=== PATIENT | male | born 1960 | race Caucasian/White ===

== ENCOUNTER 2018-07-23 17:55 | Emergency (ER) | payer OTHER ==
[2018-07-23] MEDS ORDERED: Ondansetron 4 MG Tab.DIS PO ONE (17:56)
[2018-07-23] MEDS ORDERED: Ciprofloxacin 500 MG Tab PO ONE (17:56)
[2018-07-23] MEDS ORDERED: Tamsulosin 0.4 MG Cap.ER PO ONE ×2 (17:56→19:51)
[2018-07-23] MEDS ORDERED: Acetaminophen/oxyCODONE 325-5 MG Tab PO ONE (17:56)
[2018-07-23] MEDS ORDERED: Sodium Chloride 0.9% 10 ML Syringe FLUSH PRN (18:21)
[2018-07-23] MEDS ORDERED: Ondansetron 4 MG/2 ML SDV IV ONE (18:21)
[2018-07-23] MEDS ORDERED: Lactated Ringers 1,000 ML IV ONE ×2 (18:21→20:02)
[2018-07-23] MEDS ORDERED: fentaNYL 100 MCG/2 ML SDV IVPUSH ONE ×2 (18:22→19:34)
[2018-07-23] MEDS ORDERED: Iopamidol 612 MG/ML 100 ML Bottle IVPUSH ONE (18:55)
[2018-07-23 18:56] LABS: CHLORIDE,CL 99 mmol/L (101-111); SODIUM,NA 135 mmol/L (135-145)
[2018-07-23] MEDS ORDERED: Iopamidol 612 MG/ML 50 ML SDV IVPUSH ONE (19:01)
[2018-07-23] MEDS ORDERED: Iopamidol 612 MG/ML 75 ML Bottle IVPUSH ONE (19:02)
--- NOTE | 2018-07-23 19:03 | EDM.PDOC ---
<Nunu Sellers - Last Filed: 07/24/18 03:38> ED HPI GENERAL MEDICAL PROBLEM - General Chief Complaint: Abdominal Pain Stated Complaint: PAINS GOING DOWN LEFT SIDE OF [id number] Time Seen by Provider: 07/23/18 18:20 - History of Present Illness INITIAL COMMENTS - FREE TEXT/NARRATIVE: mid left abdominal pain today, mild 2 hours earlier improved then worsened, constant, nausea, no vomiting. kimted intake today. reports pain started left flank yesterday. Has had increased frequency of urination , no burining. no fever or chills. - Related Data Allergies Allergy/AdvReac Type Severity Reaction Status Date / Time midazolam [From Versed] AdvReac Agitation Verified 07/23/18 18:10 Home Meds: Home Meds Aspirin [Lo-Dose Aspirin EC] 81 mg PO DAILY 07/23/18 [History] Gabapentin [Neurontin] 300 mg PO BID 07/23/18 [History] Levothyroxine 75 mcg PO DAILY 07/23/18 [History] Liraglutide [Victoza] 1.6 units SQ BID 07/23/18 [History] Losartan [Cozaar] 25 mg PO DAILY 07/23/18 [History] atorvaSTATin [Lipitor] 10 mg PO BEDTIME 07/23/18 [History] glipiZIDE [Glucotrol XL] 5 mg PO BID 07/23/18 [History] metFORMIN HCl [Metformin HCl] 1,000 mg PO BID 07/23/18 [History] rOPINIRole [Requip] 0.5 mg PO BID 07/23/18 [History] ED ROS GENERAL - Review of Systems Review Of Systems: ROS reveals no pertinent complaints other than HPI. ED EXAM, GI/ABD - Physical Exam Exam: See Below Exam Limited By: No Limitations General Appearance: Alert, Moderate Distress, Obese Eyes: Bilateral: Normal Appearance Ears: Normal External Exam Nose: Normal Inspection Throat/Mouth: Normal Inspection Head: Atraumatic, Other Neck: Normal Inspection Respiratory/Chest: No Respiratory Distress, Lungs Clear, Normal Breath Sounds Cardiovascular: Regular Rate, Rhythm GI/Abdominal Exam: No Distention, Tender (mid to lateral left abdomen). No: Guarding, Rigid Back Exam: Normal Inspection Extremities: Pedal Edema (1+) Neurological: Alert, Oriented, Normal Cognition Psychiatric: Normal Affect Skin Exam: Warm, Dry, Intact, Normal Color, No Rash Course - Vital Signs Last Recorded V/S: Last Vital Signs Temp 37.4 C 07/23/18 19:41 Pulse 79 07/23/18 19:41 Resp 18 07/23/18 19:41 BP 153/75 H 07/23/18 19:41 Pulse Ox 92 L 07/23/18 19:41 - Orders/Labs/Meds Orders: Active Orders 24 hr Category Date Time Status EKG 12 Lead [EKG Documentation Completion] [RC] URGENT Care 07/23/18 18:21 Active EKG Documentation Completion [RC] URGENT Care 07/23/18 18:21 Active Peripheral IV Care [RC] . DIRECTED Care 07/23/18 18:21 Active Peripheral IV Insertion Adult [OM.PC] Stat Oth 07/23/18 18:21 Ordered Labs: Laboratory Tests 07/23/18 07/23/18 07/23/18 Range/Units 18:30 18:30 18:30 WBC 8.8 (5.0-10.0) 10^3/uL RBC 5.21 (4.6-6.2) 10^6/uL Hgb 14.7 (14.0-18.0) g/dL Hct 44.7 (40.0-54.0) % MCV 85.8 (80-100) fL MCH 28.2 (27.0-34.0) pg MCHC 32.9 L (33.0-35.0) g/dL Plt Count 202 (150-450) 10^3/uL Neut % (Auto) 69.6 (42.2-75.2) % Lymph % (Auto) 19.6 L (20.5-50.1) % [place] % (Auto) 8.4 H (2-8) % Eos % (Auto) 1.9 (1.0-3.0) % Baso % (Auto) 0.5 (0.0-1.0) % Sodium 135 (135-145) mmol/L Potassium 4.0 (3.6-5.0) mmol/L Chloride 99 L (101-111) mmol/L Carbon Dioxide 25.0 (21.0-31.0) mmol/L Anion Gap 15.0 BUN 21 H (7-18) mg/dL Creatinine 0.9 (0.6-1.3) mg/dL Est Cr Clr Drug Dosing TNP Estimated GFR (MDRD) > 60 BUN/Creatinine Ratio 23.33 Glucose 203 H (74-105) mg/dL Lactic Acid 1.7 (0.5-2.2) mmol/L Calcium 8.9 (8.4-10.2) mg/dl Total Bilirubin 0.9 (0.2-1.0) mg/dL AST 38 (10-42) IU/L ALT 46 (10-60) IU/L Alkaline Phosphatase 59 (42-121) IU/L C-Reactive Protein (0.0-1.3) mg/dL Total Protein 6.9 (6.7-8.2) g/dl Albumin 3.5 (3.2-5.5) g/dl Globulin 3.4 Albumin/Globulin Ratio 1.03 Amylase (28-100) U/L Lipase (22-51) U/L Urine Color (YELLOW) Urine Appearance (CLEAR) Urine pH (5.0-9.0) Ur Specific [place] (1.005-1.030) Urine Protein (NEGATIVE) Urine Glucose (UA) (NEGATIVE) Urine Ketones (NEGATIVE) Urine Occult Blood (NEGATIVE) Urine Nitrite (NEGATIVE) Urine Bilirubin (NEGATIVE) Urine Urobilinogen (0.2-1.0) mg/dL Ur Leukocyte Esterase (NEGATIVE) Urine RBC /HPF Urine WBC (0-5/HPF) /HPF Ur Epithelial Cells /HPF Urine Bacteria (0-FEW/HPF) /HPF Urine Mucus /LPF 07/23/18 07/23/18 07/23/18 Range/Units 18:30 18:30 20:14 WBC (5.0-10.0) 10^3/uL RBC (4.6-6.2) 10^6/uL Hgb (14.0-18.0) g/dL Hct (40.0-54.0) % MCV (80-100) fL MCH (27.0-34.0) pg MCHC (33.0-35.0) g/dL Plt Count (150-450) 10^3/uL Neut % (Auto) (42.2-75.2) % Lymph % (Auto) (20.5-50.1) % [place] % (Auto) (2-8) % Eos % (Auto) (1.0-3.0) % Baso % (Auto) (0.0-1.0) % Sodium (135-145) mmol/L Potassium (3.6-5.0) mmol/L Chloride (101-111) mmol/L Carbon Dioxide (21.0-31.0) mmol/L Anion Gap BUN (7-18) mg/dL Creatinine (0.6-1.3) mg/dL Est Cr Clr Drug Dosing Estimated GFR (MDRD) BUN/Creatinine Ratio Glucose (74-105) mg/dL Lactic Acid (0.5-2.2) mmol/L Calcium (8.4-10.2) mg/dl Total Bilirubin (0.2-1.0) mg/dL AST (10-42) IU/L ALT (10-60) IU/L Alkaline Phosphatase (42-121) IU/L C-Reactive Protein 0.9 (0.0-1.3) mg/dL Total Protein (6.7-8.2) g/dl Albumin (3.2-5.5) g/dl Globulin Albumin/Globulin Ratio Amylase 59 (28-100) U/L Lipase 32 (22-51) U/L Urine Color Yellow (YELLOW) Urine Appearance Slightly cloudy (CLEAR) Urine pH 7.0 (5.0-9.0) Ur Specific [place] 1.015 (1.005-1.030) Urine Protein 30 H (NEGATIVE) Urine Glucose (UA) Negative (NEGATIVE) Urine Ketones Negative (NEGATIVE) Urine Occult Blood Small H (NEGATIVE) Urine Nitrite Negative (NEGATIVE) Urine Bilirubin Negative (NEGATIVE) Urine Urobilinogen 0.2 (0.2-1.0) mg/dL Ur Leukocyte Esterase Negative (NEGATIVE) Urine RBC 5-10 H /HPF Urine WBC 0-5 (0-5/HPF) /HPF Ur Epithelial Cells Rare /HPF Urine Bacteria Rare (0-FEW/HPF) /HPF Urine Mucus Rare /LPF Meds: Medications Discontinued Medications Generic Name Dose Route Start Last Admin Trade Name Freq PRN Reason Stop Dose Admin Ciprofloxacin Confirm 07/23/18 20:50 07/23/18 21:03 Ciprofloxacin Hcl Administered 07/23/18 20:51 Not Given Dose 1,500 mg .ROUTE .STK-MED ONE Fentanyl 50 mcg 07/23/18 18:22 03/13/19 19:14 Sublimaze IVPUSH 07/23/18 18:23 50 mcg ONETIME ONE Administration Fentanyl 50 mcg 07/23/18 19:34 07/23/18 19:39 Sublimaze IVPUSH 07/23/18 19:35 50 mcg ONETIME ONE Administration Lactated Ringer's 1,000 mls @ 1,000 mls/hr 07/23/18 18:21 07/23/18 19:16 Ringers, Lactated IV 07/23/18 19:20 1,000 mls/hr .BOLUS ONE Administration Lactated Ringer's 1,000 mls @ 999 mls/hr 07/23/18 20:02 07/23/18 20:14 Ringers, Lactated IV 07/23/18 21:02 999 mls/hr ONETIME ONE Administration Iopamidol 125 ml 07/23/18 18:55 Isovue-300 (61%) IVPUSH 07/23/18 18:56 ONETIME ONE Iopamidol 50 ml 07/23/18 19:01 07/23/18 19:10 Isovue-300 (61%) IVPUSH 07/23/18 19:02 50 ml ONETIME ONE Administration Iopamidol 75 ml 07/23/18 19:02 07/23/18 19:10 Isovue-300 (61%) IVPUSH 07/23/18 19:03 75 ml ONETIME ONE Administration Ondansetron HCl 4 mg 07/23/18 18:21 07/23/18 19:12 Zofran IV 07/23/18 18:22 4 mg ONETIME ONE Administration Ondansetron HCl Confirm 07/23/18 20:01 07/23/18 21:01 Zofran Odt Administered 07/23/18 20:02 Not Given Dose 12 mg .ROUTE .STK-MED ONE Ondansetron HCl Confirm 07/23/18 20:50 07/23/18 21:00 Zofran Odt Administered 07/23/18 20:51 Not Given Dose 16 mg .ROUTE .STK-MED ONE Oxycodone/Acetaminophen Confirm 07/23/18 20:01 07/23/18 21:01 Percocet 325-5 Mg Administered 07/23/18 20:02 Not Given Dose 2 tab .ROUTE .STK-MED ONE Oxycodone/Acetaminophen Confirm 07/23/18 20:50 07/23/18 21:01 Percocet 325-5 Mg Administered 07/23/18 20:51 Not Given Dose 4 tab .ROUTE .STK-MED ONE Sodium Chloride 10 ml 07/23/18 18:21 07/23/18 19:14 Saline Flush FLUSH 10 ml ASDIRECTED PRN Administration Keep Vein Open Tamsulosin HCl 0.4 mg 07/23/18 19:51 07/23/18 20:02 Flomax PO 07/23/18 19:52 0.4 mg ONETIME ONE Administration Tamsulosin HCl Confirm 07/23/18 20:51 07/23/18 21:02 Flomax Administered 07/23/18 20:52 Not Given Dose 0.4 mg .ROUTE .STK-MED ONE Departure - Departure Time of Disposition: 20:40 Disposition: Home, Self-Care 01 Condition: Good Clinical Impression: Renal calculi - Discharge Information *PRESCRIPTION DRUG MONITORING PROGRAM REVIEWED*: No *COPY OF PRESCRIPTION DRUG MONITORING REPORT IN PATIENT GRACIE: No Instructions: Kidney Stones, [id number], Dietary Guidelines to Help Prevent Kidney Stones Referrals: Sade Masterson NP [Primary Care Provider] - Forms: ED Department Discharge Additional Instructions: increase fluids zofran 4mg ODT one every 6 hours as needed for nausea Percocet 5/325 one every 6 hours as needed for severe pain Cipro 500mg one twice daily for 5 days Flomax 0.4 mg one daily for 5 days Clinic follow up on Saturday - My Orders Last 24 Hours: My Active Orders 07/23/18 18:21 EKG 12 Lead [EKG Documentation Completion] [RC] URGENT EKG Documentation Completion [RC] URGENT Peripheral IV Care [RC] . DIRECTED Peripheral IV Insertion Adult [OM.PC] Stat - Assessment/Plan Last 24 Hours: My Active Orders 07/23/18 18:21 EKG 12 Lead [EKG Documentation Completion] [RC] URGENT EKG Documentation Completion [RC] URGENT Peripheral IV Care [RC] . DIRECTED Peripheral IV Insertion Adult [OM.PC] Stat <Eligio Lopez - Last Filed: 07/24/18 09:39> ED HPI GENERAL MEDICAL PROBLEM - General Source of Information: Reports: Patient History Limitations: Reports: No Limitations Left Lower Abdominal Pain Score (Numeric/FACES): 8 Course - Re-Assessments/Exams Free Text/Narrative Re-Assessment/Exam: 07/23/18 19:03 Care to Nunu Franklin PA-C at this time. Pt in CT scanner at this time.
[2018-07-23] MEDS ORDERED: Acetaminophen/oxyCODONE 325-5 MG Tab ONE ×2 (20:01→20:50)
[2018-07-23] MEDS ORDERED: Ondansetron 4 MG Tab.DIS ONE ×2 (20:01→20:50)
[2018-07-23] MEDS ORDERED: Ciprofloxacin 500 MG Tab ONE (20:50)
[2018-07-23] MEDS ORDERED: Tamsulosin 0.4 MG Cap.ER ONE (20:51)
== END 2018-07-23 21:08 | disposition home or self-care (01) ==
LOC: DL.ED 17:55
DX: N20.2 Calculus of kidney with calculus of ureter (principal); Z88.8 Allergy status to other drugs, medicaments and biological substances; Z79.82 Long term (current) use of aspirin; Z79.899 Other long term (current) drug therapy
CPT/HCPCS: 36415; 74177; 80053; 81001; 82150; 83605; 83690; 85025; 86140; 93005; 96361; 96374; 96375; 99284; A9270; J2405; J3010; J7120; Q9967

== ENCOUNTER 2019-04-13 03:41 | Emergency (ER) | payer OTHER ==
[2019-04-13] MEDS ORDERED: Albuterol/Ipratropium 3.0-0.5 MG/3 ML Neb Soln ONE (03:57)
--- NOTE | 2019-04-13 04:00 | EDM.PDOC ---
ED HPI GENERAL MEDICAL PROBLEM - General Chief Complaint: Respiratory Problem Stated Complaint: SICK FOR OVER A WEEK, GETTING WORSE Time Seen by Provider: 04/13/19 03:45 Source of Information: Reports: Patient, Family, RN History Limitations: Reports: No Limitations - History of Present Illness INITIAL COMMENTS - FREE TEXT/NARRATIVE: ED with c/o fever productive cough body aches and headache for past week. On azithromycin x 4 days and not helping. notes intolerant of prednisone tried one time of one pill and blood sugars up to 400. Started insulin 2 months ago. 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: Breathing Treatments Generalized Pain Score (Numeric/FACES): 5 - Related Data Allergies Allergy/AdvReac Type Severity Reaction Status Date / Time midazolam [From Versed] AdvReac Agitation Verified 04/13/19 03:57 Home Meds: Home Meds Aspirin [Lo-Dose Aspirin EC] 81 mg PO DAILY 07/23/18 [History] Gabapentin [Neurontin] 300 mg PO BID 07/23/18 [History] Levothyroxine 75 mcg PO DAILY 07/23/18 [History] Liraglutide [Victoza] 1.6 units SQ BID 07/23/18 [History] Losartan [Cozaar] 25 mg PO DAILY 07/23/18 [History] atorvaSTATin [Lipitor] 10 mg PO BEDTIME 07/23/18 [History] glipiZIDE [Glucotrol XL] 5 mg PO BID 07/23/18 [History] metFORMIN HCl [Metformin HCl] 1,000 mg PO BID 07/23/18 [History] rOPINIRole [Requip] 0.5 mg PO BID 07/23/18 [History] Past Medical History Cardiovascular History: Reports: High Cholesterol, Hypertension Other Musculoskeletal History: Restless legs Neurological History: Reports: Neuropathy, Diabetic Endocrine/Metabolic History: Reports: Diabetes, Type II, Hypothyroidism - Past Surgical History GI Surgical History: Reports: Bariatric Procedure Other GI Surgeries/Procedures: Lap Band Social & Family History - Tobacco Use Smoking Status *Q: Never Smoker - Caffeine Use Caffeine Use: Reports: Coffee - Recreational Drug Use Recreational Drug Use: No ED ROS GENERAL - Review of Systems Review Of Systems: Comprehensive ROS is negative, except as noted in HPI. ED EXAM, GENERAL - Physical Exam Exam: See Below Exam Limited By: No Limitations General Appearance: Alert, Mild Distress Eye Exam: Bilateral Eye: EOMI Ears: Normal External Exam, Normal TMs Nose: Normal Inspection Throat/Mouth: Normal Inspection Head: Atraumatic, Normocephalic Neck: Normal Inspection Respiratory/Chest: No Respiratory Distress, Wheezing, Other (frequent dry harsh cough) Cardiovascular: Normal Peripheral Pulses, Regular Rate, Rhythm GI/Abdominal: Soft Neurological: Alert, Oriented, Normal Cognition Psychiatric: Flat Affect Skin Exam: Warm, Dry, Intact, Normal Color Course - Vital Signs Last Recorded V/S: Last Vital Signs Temp 97 F 04/13/19 03:44 Pulse 78 04/13/19 03:44 Resp 19 04/13/19 03:44 BP 165/75 H 04/13/19 03:44 Pulse Ox 99 04/13/19 03:44 - Orders/Labs/Meds Orders: Active Orders 24 hr Category Date Time Status Glucose [Blood Glucose Check, Bedside] [RC] ONETIME Care 04/13/19 03:52 Active RT Aerosol Therapy [RC] ASDIRECTED Care 04/13/19 04:13 Active CXR [Chest 2V] [CR] Urgent Exams 04/13/19 03:43 Taken CULTURE BLOOD [BC] Stat Lab 04/13/19 04:05 Results CULTURE BLOOD [BC] Stat Lab 04/13/19 04:10 Received CULTURE SPUTUM + SMEAR [RM] Stat Lab 04/13/19 04:57 Received Blood Culture x2 Reflex Set [OM.PC] Stat Oth 04/13/19 03:52 Ordered Labs: Laboratory Tests 04/13/19 04/13/19 04/13/19 Range/Units 04:05 04:05 04:05 WBC 10.6 H (5.0-10.0) 10^3/uL RBC 5.20 (4.6-6.2) 10^6/uL Hgb 14.2 (14.0-18.0) g/dL Hct 43.6 (40.0-54.0) % MCV 83.8 (80-100) fL MCH 27.3 (27.0-34.0) pg MCHC 32.6 L (33.0-35.0) g/dL Plt Count 293 D (150-450) 10^3/uL Neut % (Auto) 69.9 (42.2-75.2) % Lymph % (Auto) 20.0 L (20.5-50.1) % [place] % (Auto) 8.2 H (2-8) % Eos % (Auto) 1.4 (1.0-3.0) % Baso % (Auto) 0.5 (0.0-1.0) % Sodium 137 (135-145) mmol/L Potassium 3.8 (3.6-5.0) mmol/L Chloride 97 L (101-111) mmol/L Carbon Dioxide 32.0 H (21.0-31.0) mmol/L Anion Gap 11.8 BUN 16 (7-18) mg/dL Creatinine 0.7 (0.6-1.3) mg/dL Est Cr Clr Drug Dosing 117.83 mL/min Estimated GFR (MDRD) > 60 BUN/Creatinine Ratio 22.85 Glucose 182 H (74-105) mg/dL Lactic Acid 1.8 (0.5-2.2) mmol/L Calcium 9.3 (8.4-10.2) mg/dl Magnesium 1.4 L (1.8-2.5) mg/dL Total Bilirubin 1.3 H (0.2-1.0) mg/dL AST 25 (10-42) IU/L ALT 22 (10-60) IU/L Alkaline Phosphatase 88 (42-121) IU/L B-Natriuretic Peptide 12 (0-100) pg/ml Total Protein 7.5 (6.7-8.2) g/dl Albumin 3.5 (3.2-5.5) g/dl Globulin 4.0 Albumin/Globulin Ratio 0.88 Meds: Medications Discontinued Medications Generic Name Dose Route Start Last Admin Trade Name Tamar PRN Reason Stop Dose Admin Albuterol/Ipratropium Confirm 04/13/19 03:57 04/13/19 04:01 Duoneb 3.0-0.5 Mg/3 Ml Administered 04/13/19 03:58 3 ml Dose Administration 3 ml .ROUTE .STK-MED ONE Albuterol/Ipratropium 3 ml 04/13/19 04:13 04/13/19 04:17 Duoneb 3.0-0.5 Mg/3 Ml NEB 04/13/19 04:14 Not Given ONETIME ONE Benzonatate 200 mg 04/13/19 04:42 04/13/19 04:50 Tessalon Perles PO 04/13/19 04:43 200 mg ONETIME ONE Administration Ceftriaxone Sodium 1 gm/ 50 mls @ 50 mls/hr 04/13/19 04:41 04/13/19 04:51 Sodium Chloride IV 04/13/19 05:40 50 mls/hr ONETIME ONE Administration Magnesium Sulfate 2 gm/ Premix 50 mls @ 25 mls/hr 04/13/19 04:41 04/13/19 05: 16 IV 04/13/19 06:40 Not Given ONETIME ONE Magnesium Sulfate/Dextrose 1 gm in 100 mls @ 100 mls/hr 04/13/19 04:45 05:14 Magnesium Sulfate In D5w 100 Premix IV 04/13/19 05:44 100 mls/hr ONETIME ONE Administration Ondansetron HCl 4 mg 04/13/19 05:17 04/13/19 05:22 Zofran IV 04/13/19 05:18 Not Given ONETIME ONE Ropinirole HCl 0.5 mg 04/13/19 05:12 04/13/19 05:26 Requip PO 04/13/19 05:13 0.5 mg ONETIME ONE Administration Departure - Departure Time of Disposition: 06:16 Disposition: Home, Self-Care 01 Condition: Good Clinical Impression: Bronchitis - Discharge Information *PRESCRIPTION DRUG MONITORING PROGRAM REVIEWED*: No *COPY OF PRESCRIPTION DRUG MONITORING REPORT IN PATIENT GRACIE: No Instructions: Upper Respiratory Infection, Adult Forms: ED Department Discharge Additional Instructions: cefdinir 300mg one twice daily for one week continue home medications robitussin to loosen secretions 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 follow up this week, sooner if symptoms worsen tesselon 200mg every 8 hours as needed for cough - My Orders Last 24 Hours: My Active Orders 04/13/19 03:43 CXR [Chest 2V] [CR] Urgent 04/13/19 03:52 Glucose [Blood Glucose Check, Bedside] [RC] ONETIME Blood Culture x2 Reflex Set [OM.PC] Stat 04/13/19 04:05 CULTURE BLOOD [BC] Stat 04/13/19 04:10 CULTURE BLOOD [BC] Stat 04/13/19 04:13 RT Aerosol Therapy [RC] ASDIRECTED 04/13/19 04:57 CULTURE SPUTUM + SMEAR [RM] Stat - Assessment/Plan Last 24 Hours: My Active Orders 04/13/19 03:43 CXR [Chest 2V] [CR] Urgent 04/13/19 03:52 Glucose [Blood Glucose Check, Bedside] [RC] ONETIME Blood Culture x2 Reflex Set [OM.PC] Stat 04/13/19 04:05 CULTURE BLOOD [BC] Stat 04/13/19 04:10 CULTURE BLOOD [BC] Stat 04/13/19 04:13 RT Aerosol Therapy [RC] ASDIRECTED 04/13/19 04:57 CULTURE SPUTUM + SMEAR [RM] Stat
[2019-04-13] MEDS ORDERED: Albuterol/Ipratropium 3.0-0.5 MG/3 ML Neb Soln NEB ONE (04:13)
[2019-04-13 04:29] LABS: ANION GAP 11.8; CHLORIDE,CL 97 mmol/L (101-111); SODIUM,NA 137 mmol/L (135-145)
[2019-04-13] MEDS ORDERED: Magnesium Sulfate/Water 2 GM in Premix Bag 1 BAG IV ONE (04:41)
[2019-04-13] MEDS ORDERED: cefTRIAXone 1 GM in Sodium Chloride 0.9% 50 ML IV ONE (04:41)
[2019-04-13] MEDS ORDERED: Benzonatate 100 MG Cap PO ONE (04:42)
[2019-04-13] MEDS ORDERED: Magnesium Sulfate/D5W 1 GM/100 ML BAG IV ONE (04:45)
[2019-04-13] MEDS ORDERED: rOPINIRole 0.25 MG Tab PO ONE (05:12)
[2019-04-13] MEDS ORDERED: Ondansetron 4 MG/2 ML SDV IV ONE (05:17)
== END 2019-04-13 06:31 | disposition home or self-care (01) ==
LOC: DL.ED 03:41
DX: J40 Bronchitis, not specified as acute or chronic (principal); E78.00 Pure hypercholesterolemia, unspecified; I10 Essential (primary) hypertension; E11.40 Type 2 diabetes mellitus with diabetic neuropathy, unspecified; E03.9 Hypothyroidism, unspecified; Z79.84 Long term (current) use of oral hypoglycemic drugs; Z79.899 Other long term (current) drug therapy; Z79.82 Long term (current) use of aspirin; Z79.890 Hormone replacement therapy; Z88.4 Allergy status to anesthetic agent
CPT/HCPCS: 36415; 71046; 80053; 82962; 83605; 83735; 83880; 85025; 87040; 87070; 87205; 87804; 94640; 96365; 96367; 99284; A9270; J0696; J3475; J7050; J7620-GY

== ENCOUNTER 2020-01-22 10:54 | Emergency (ER) | payer OTHER ==
--- NOTE | 2020-01-22 11:04 | EDM.PDOC ---
"ED HPI GENERAL MEDICAL PROBLEM - General Chief Complaint: Abdominal Pain Stated Complaint: STOMACHE PRBLEMS/BLOODY STOOL Time Seen by Provider: 01/22/20 11:03 Source of Information: Reports: Patient, Family (), Old Records, RN, RN Notes Reviewed History Limitations: Reports: No Limitations - History of Present Illness INITIAL COMMENTS - FREE TEXT/NARRATIVE: Pt presents to ER from home by POV with c/o 2 weeks duration of mild to moderate abdominal pain with nausea and a couple of episodes of vomiting. He has had increasingly loose stools over the last 3 days. He had a BM this morning and saw quite a lot of blood in the toilet water. He then had a BM that was mostly gelatinous red to maroon bloody material. He showered, and came to the ER and had some streaks of blood in his under shorts be the time he got here. Denies epigastric pain or burning, Hx of PUD or gastritis. He claims he had a normal colonoscopy in [place] within the last 2 years and was told he didn't need another one for 10 years. Hx of lap-band surgery, obesity, DM Type 2, and hypothyroidism. Onset: Gradual Duration: Constant Location: Reports: Abdomen Quality: Reports: Ache Severity: Moderate Improves with: Reports: None Associated Symptoms: Reports: No Other Symptoms Abdomen Pain Score (Numeric/FACES): 4 - Related Data Allergies Allergy/AdvReac Type Severity Reaction Status Date / Time midazolam [From Versed] AdvReac Agitation Verified 01/22/20 11:15 Home Meds: Home Meds Aspirin [Lo-Dose Aspirin EC] 81 mg PO DAILY 07/23/18 [History] Levothyroxine 75 mcg PO DAILY 07/23/18 [History] Liraglutide [Victoza] 1.6 units SQ BID 07/23/18 [History] Losartan [Cozaar] 25 mg PO DAILY 07/23/18 [History] atorvaSTATin [Lipitor] 10 mg PO BEDTIME 07/23/18 [History] glipiZIDE [Glucotrol XL] 5 mg PO BID 07/23/18 [History] metFORMIN HCl [Metformin HCl] 1,000 mg PO BID 07/23/18 [History] rOPINIRole [Requip] 0.5 mg PO BID 07/23/18 [History] Dulaglutide [Trulicity] 0.75 mg SQ 01/22/20 [History] Insulin Aspart [NovoLOG] 10 units SUBCUT TID 01/22/20 [History] Past Medical History Cardiovascular History: Reports: High Cholesterol, Hypertension Other Musculoskeletal History: Restless legs Neurological History: Reports: Neuropathy, Diabetic Endocrine/Metabolic History: Reports: Diabetes, Type II, Hypothyroidism, Obesity/BMI 30+ - Past Surgical History GI Surgical History: Reports: Bariatric Procedure Other GI Surgeries/Procedures: Lap Band Social & Family History - Family History Family Medical History: Noncontributory - Caffeine Use Caffeine Use: Reports: Coffee - Living Situation & Occupation Living situation: Reports: , with Spouse ED ROS GENERAL - Review of Systems Review Of Systems: Comprehensive ROS is negative, except as noted in HPI. ED EXAM, GI/ABD - Physical Exam Exam: See Below Exam Limited By: No Limitations General Appearance: Alert, No Apparent Distress, Obese Eyes: Bilateral: Normal Appearance (No scleral icterus) Nose: Normal Inspection, No Blood Throat/Mouth: Normal Voice, No Airway Compromise Head: Atraumatic, Normocephalic Neck: Normal Inspection Respiratory/Chest: No Respiratory Distress, Lungs Clear, Normal Breath Sounds, No Accessory Muscle Use, Chest Non-Tender Cardiovascular: Regular Rate, Rhythm GI/Abdominal Exam: Normal Bowel Sounds, Soft, No Distention, Tender (Generalized abdominal tenderness, worse at RUQ & RLQ), Other (Exam is somewhat limited by obesity of the abdomen.). No: Guarding, Rigid, Rebound (Male) Exam: Deferred Rectal (Males) Exam: Normal Rectal Tone, Bloody Stool (Gross blood in rectal vault.). No: Hemorrhoids, Mass, Perirectal Abscess, Rectal Fissure, Tenderness Back Exam: Full Range of Motion, CVA Tenderness (R). No: CVA Tenderness (L), Vertebral Tenderness Extremities: Normal Range of Motion, Non-Tender, No Pedal Edema Psychiatric: Normal Mood Skin Exam: Warm, Dry, Intact, Normal Color, No Rash. No: Ecchymosis, Jaundice, Petechiae Course - Vital Signs Last Recorded V/S: Last Vital Signs Temp 97.8 F 01/22/20 12:41 Pulse 77 01/22/20 13:28 Resp 16 01/22/20 13:28 BP 116/63 01/22/20 13:28 Pulse Ox 98 01/22/20 13:28 - Orders/Labs/Meds Orders: Active Orders 24 hr Category Date Time Status Peripheral IV Care [RC] . DIRECTED Care 01/22/20 11:16 Active Sodium Chloride 0.9% [Saline Flush] Med 01/22/20 11:15 Active 10 ml FLUSH ASDIRECTED PRN Peripheral IV Insertion Adult [OM.PC] Stat Oth 01/22/20 11:15 Ordered Medication Orders Sodium Chloride (Saline Flush) 10 ml FLUSH ASDIRECTED PRN PRN Reason: Keep Vein Open Last Admin: 01/22/20 11:28 Dose: 10 ml Documented by: HOANG Labs: Laboratory Tests 01/22/20 01/22/20 01/22/20 Range/Units 11:25 11:25 11:25 WBC 8.9 (5.0-10.0) 10^3/uL RBC 5.14 (4.6-6.2) 10^6/uL Hgb 14.1 (14.0-18.0) g/dL Hct 42.3 (40.0-54.0) % MCV 82.3 (80-100) fL MCH 27.4 (27.0-34.0) pg MCHC 33.3 (33.0-35.0) g/dL Plt Count 262 (150-450) 10^3/uL Neut % (Auto) 70.5 (42.2-75.2) % Lymph % (Auto) 20.9 (20.5-50.1) % [place] % (Auto) 7.0 (2-8) % Eos % (Auto) 1.0 (1.0-3.0) % Baso % (Auto) 0.6 (0.0-1.0) % PT 9.9 (9.0-12.0) SEC INR 1.0 (0.9-1.2) APTT 24.3 (22.0-34.0) SEC Sodium 138 (136-145) mmol/L Potassium 3.3 L (3.5-5.1) mmol/L Chloride 99 (98-107) mmol/L Carbon Dioxide 31 (21-32) mmol/L Anion Gap 11.3 (7-13) mEq/L BUN 14 (7-18) mg/dL Creatinine 0.96 (0.70-1.30) mg/dL Est Cr Clr Drug Dosing 84.90 mL/min Estimated GFR (MDRD) > 60 BUN/Creatinine Ratio 14.6 (No establ ref range) Glucose 145 H (74-99) mg/dL Calcium 8.9 (8.5-10.1) mg/dL Total Bilirubin 1.1 H (0.2-1.0) mg/dL AST 18 (15-37) U/L ALT 30 (16-63) U/L Alkaline Phosphatase 102 (46-116) U/L Total Protein 7.4 (6.4-8.2) g/dL Albumin 3.2 L (3.4-5.0) g/dL Globulin 4.2 Albumin/Globulin Ratio 0.76 Amylase 50 (25-115) U/L Lipase 81 (73-393) U/L Meds: Medications Generic Name Dose Route Start Last Admin Trade Name Freq PRN Reason Stop Dose Admin Sodium Chloride 10 ml 01/22/20 11:15 01/22/20 11:28 Saline Flush FLUSH 10 ml ASDIRECTED PRN Administration Keep Vein Open Discontinued Medications Generic Name Dose Route Start Last Admin Trade Name Freq PRN Reason Stop Dose Admin Sodium Chloride 1,000 mls @ 999 mls/hr 01/22/20 11:15 01/22/20 11:30 Normal Saline IV 01/22/20 12:15 999 mls/hr .BOLUS ONE Administration Iopamidol 100 ml 01/22/20 11:58 01/22/20 12:39 Isovue-300 (61%) IVPUSH 01/22/20 11:59 99 ml ONETIME ONE Administration Ondansetron HCl 4 mg 01/22/20 11:15 01/22/20 11:28 Zofran IV 01/22/20 11:16 4 mg ONETIME ONE Administration Pantoprazole Sodium 80 mg 01/22/20 11:15 01/22/20 11:28 Protonix Iv IVPUSH 01/22/20 11:16 80 mg .BOLUS ONE Administration - Radiology Interpretation Free Text/Narrative:: [facility] [place] [facility] Final Radiology Report Call: [phone] assistance Online chat: [email or web address] Name: MITZI VERGARA Age: 59Years M Date: 01/22/2020 SSN: -- : 1960 Study: CT ABDOMEN PELVIS W CONT Requesting Physician: HASEEB ADAIR Images: [id number] Addl Studies: Provided Clinical History: lower abdominal pain, bloody stools Contrast: With Contrast Medium: Isovue 300 Contrast Amount: 99 mL Contrast Method: Intravenous (IV) Page 1 of 2 PROCEDURE INFORMATION: Exam: CT Abdomen And Pelvis With Contrast Exam date and time: 01/22/2020 12:20 PM Age: 59 years old Clinical indication: Other: Lower abdominal pain, bloody stools TECHNIQUE: Imaging protocol: Computed tomography of the abdomen and pelvis with intravenous contrast. Radiation optimization: All CT scans at this facility use at least one of these dose optimization techniques: automated exposure control; mA and/or kV adjustment per patient size (includes targeted exams where dose is matched to clinical indication); or iterative reconstruction. Contrast material: ISOVUE 300; Contrast volume: 99 ml; Contrast route: INTRAVENOUS (IV); COMPARISON: CT Abdomen Pelvis w Cont 07/23/2018 6:49 PM FINDINGS: Liver: Chronic mild enlargement. Gallbladder and bile ducts: Normal. Pancreas: Normal. Spleen: Normal. Adrenals: Normal. Kidneys and ureters: Chronic unchanged mid right renal cortical cyst. Stomach and bowel: Unchanged upper gastric lap band. Appendix: No evidence of appendicitis. Intraperitoneal space: No ascites, pneumoperitoneum or peritoneal lesion. Retroperitoneal space: Solid right retroperitoneal mass 15 x 14 x 12 cm. The mass is hypodense centrally. No calcification or fluid level. There is infiltration of the fat surrounding the mass and the mass displaces the right kidney cephalad. MITZI VERGARA | Final Radiology Report CONFIDENTIALITY STATEMENT This report is intended only for use by the referring physician, and only in accordance with law. If you received this in error, call [phone]. Page 2 of 2 Vasculature: Mild atherosclerosis of the abdominal aorta, pelvic arteries and mesenteric vessels. Lymph nodes: No mesenteric, retroperitoneal or inguinal adenopathy. Bladder: Normal. Reproductive: Normal prostate and seminal vesicles. Bone window Bones/joints: Chronic discogenic degenerative change at L4-L5 and L5-S1 and 5 mm degenerative anterolisthesis of L4 upon L5. No acute fracture or suspicious osseous lesion. Soft tissues: No mass or hernia. IMPRESSION: 1. 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 2. Benign unchanged right renal cortical cyst or not requiring imaging follow- up. Thank you for allowing us to participate in the care of your patient. Dictated and Authenticated by: Baudilio Barr MD 01/22/2020 12:54 PM Central Time ([place] & [place]) - Re-Assessments/Exams Free Text/Narrative Re-Assessment/Exam: 01/22/20 14:[address] Bang via [employer]. She advises transferring the pt to [place] where both GI and surgical oncology are available. She would not advise having IR biopsy the mass without input from surgical onc. Dr. Nielsen accepts the pt as a direct admit to [facility]. Departure - Departure Time of Disposition: 14:07 Disposition: DC/Tfer to [facility] 02 Condition: Undetermined Clinical Impression: Retroperitoneal mass Gastrointestinal tract bleed Qualifiers: GI bleed type/associated pathology: unspecified gastrointestinal hemorrhage type Qualified Code(s): K92.2 - Gastrointestinal hemorrhage, unspecified - Discharge Information *PRESCRIPTION DRUG MONITORING PROGRAM REVIEWED*: Not Applicable *COPY OF PRESCRIPTION DRUG MONITORING REPORT IN PATIENT GRACIE: Not Applicable Forms: ED Department Discharge, Interfacility Transfer EMTALA Sepsis Event Note (ED) - Focused Exam Vital Signs: Vital Signs Temp Pulse Resp BP Pulse Ox 01/22/20 13:28 77 16 116/63 98 01/22/20 12:41 97.8 F 75 16 122/67 97 01/22/20 11:08 98.4 F 87 16 128/70 96 - My Orders Last 24 Hours: My Active Orders 01/22/20 11:15 Sodium Chloride 0.9% [Saline Flush] 10 ml FLUSH ASDIRECTED PRN Peripheral IV Insertion Adult [OM.PC] Stat 01/22/20 11:16 Peripheral IV Care [RC] . DIRECTED - Assessment/Plan Last 24 Hours: My Active Orders 01/22/20 11:15 Sodium Chloride 0.9% [Saline Flush] 10 ml FLUSH ASDIRECTED PRN Peripheral IV Insertion Adult [OM.PC] Stat 01/22/20 11:16 Peripheral IV Care [RC] . DIRECTED"
[2020-01-22] MEDS ORDERED: Ondansetron 4 MG/2 ML SDV IV ONE (11:15)
[2020-01-22] MEDS ORDERED: Pantoprazole 40 MG Vial IVPUSH ONE (11:15)
[2020-01-22] MEDS ORDERED: Sodium Chloride 0.9% 10 ML Syringe FLUSH PRN (11:15)
[2020-01-22] MEDS ORDERED: Sodium Chloride 0.9% 1,000 ML IV ONE (11:15)
[2020-01-22 11:54] LABS: ANION GAP 11.3 mEq/L (7-13); CHLORIDE,CL 99 mmol/L (98-107); SODIUM,NA 138 mmol/L (136-145)
[2020-01-22] MEDS ORDERED: Iopamidol 612 MG/ML 100 ML Bottle IVPUSH ONE (11:58)
[2020-01-22 12:03] LABS: PTT,PARTIAL THROMBOPLSTIN TIME 24.3 SEC (22.0-34.0)
--- NOTE | 2020-01-22 12:54 | CT ---
PROCEDURE INFORMATION: Exam: CT Abdomen And Pelvis With Contrast Exam date and time: 01/22/2020 12:20 PM Age: 59 years old Clinical indication: Other: Lower abdominal pain, bloody stools TECHNIQUE: Imaging protocol: Computed tomography of the abdomen and pelvis with intravenous contrast. Radiation optimization: All CT scans at this facility use at least one of these dose optimization techniques: automated exposure control; mA and/or kV adjustment per patient size (includes targeted exams where dose is matched to clinical indication); or iterative reconstruction. Contrast material: ISOVUE 300; Contrast volume: 99 ml; Contrast route: INTRAVENOUS (IV); COMPARISON: CT Abdomen Pelvis w Cont 07/23/2018 6:49 PM FINDINGS: Liver: Chronic mild enlargement. Gallbladder and bile ducts: Normal. Pancreas: Normal. Spleen: Normal. Adrenals: Normal. Kidneys and ureters: Chronic unchanged mid right renal cortical cyst. Stomach and bowel: Unchanged upper gastric lap band. Appendix: No evidence of appendicitis. Intraperitoneal space: No ascites, pneumoperitoneum or peritoneal lesion. Retroperitoneal space: Solid right retroperitoneal mass 15 x 14 x 12 cm. The mass is hypodense centrally. No calcification or fluid level. There is infiltration of the fat surrounding the mass and the mass displaces the right kidney cephalad. Vasculature: Mild atherosclerosis of the abdominal aorta, pelvic arteries and mesenteric vessels. Lymph nodes: No mesenteric, retroperitoneal or inguinal adenopathy. Bladder: Normal. Reproductive: Normal prostate and seminal vesicles. Bone window Bones/joints: Chronic discogenic degenerative change at L4-L5 and L5-S1 and 5 mm degenerative anterolisthesis of L4 upon L5. No acute fracture or suspicious osseous lesion. Soft tissues: No mass or hernia. IMPRESSION: 1. 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 2. Benign unchanged right renal cortical cyst or not requiring imaging follow-up.
== END 2020-01-22 17:36 ==
LOC: DL.ED 10:54
DX: K92.2 Gastrointestinal hemorrhage, unspecified (principal); R19.09 Other intra-abdominal and pelvic swelling, mass and lump; I10 Essential (primary) hypertension; E03.9 Hypothyroidism, unspecified; E78.00 Pure hypercholesterolemia, unspecified; E11.40 Type 2 diabetes mellitus with diabetic neuropathy, unspecified; E66.9 Obesity, unspecified; Z79.4 Long term (current) use of insulin; Z88.4 Allergy status to anesthetic agent; Z79.82 Long term (current) use of aspirin; Z79.899 Other long term (current) drug therapy; Z68.42 Body mass index [BMI] 45.0-49.9, adult
CPT/HCPCS: 36415; 74177; 80053; 82150; 83690; 85014; 85018; 85025; 85610; 85730; 96361; 96374; 96375; 99285; C9113; J2405; J7030; Q9967

== ENCOUNTER 2020-02-09 06:47 | Day surgery (SDC) | payer OTHER ==
[~2020-02-09 06:47] MED LIST: Dextrose 5%-0.45% NaCl 1,000 ML IV SCH; Sodium Chloride 0.9% 10 ML Syringe FLUSH PRN
[2020-02-09] MEDS ORDERED: Propofol 1,000 MG/100 ML SDV IV ONE (06:48)
--- NOTE | 2020-02-09 12:24 | OR ---
DATE: 02/09/2020 PROCEDURE: Total colonoscopy. INSTRUMENT USED: PCF-H190DL Olympus video colonoscope. PREMEDICATIONS: Provided by Anesthesiology Services. INDICATION: The patient with rectal bleeding, colonoscopy examination is done for detection of any polypoid lesions and removal, endoscopic hemostasis therapy if needed. DESCRIPTION OF PROCEDURE: Initial rectal exam was unremarkable. Rigid anoscopy showed small internal hemorrhoids without bleeding from them. The colonoscope was passed with ease. Scattered diverticula were noted, more so in the distal left colon along with deformity. The scope was passed with ease up to the ileocecal area. Photographs were taken of the cecum identified by the landmarks of appendiceal orifice and double-bulged ileocecal folds. No bleeding was noted from any of the visualized areas at the commencement of the examination. The bowel preparation was inadequate due to the presence of large fecal material noted, some semisolid consistency, limiting visualization of the few areas. [place] scale 1 in all regions, total score 3. No stricture. No vascular ectasia. No large isolated ulcerations seen. No evidence of diffuse inflammatory bowel disease in the form of friability, contact bleeding, or ulcerations. No polyp or tumor mass identified. No bleeding was noted from any of the visualized areas at the completion of examination. Probing the proximal sides of folds and flexures using adequate distention and clearing of the stool material, withdrawal of the scope was made, cecum to rectum time over 6 minutes. IMPRESSION: Diverticulosis. The patient tolerated the procedure well. [facility] /[id number]
== END 2020-02-09 11:05 | disposition home or self-care (01) ==
LOC: DL.ENDO 06:47
PROVIDERS: ATTEND Internal Medicine Gastroenterology
DX: K57.30 Diverticulosis of large intestine without perforation or abscess without bleeding (principal); K64.8 Other hemorrhoids; E66.09 Other obesity due to excess calories; E11.22 Type 2 diabetes mellitus with diabetic chronic kidney disease; I12.9 Hypertensive chronic kidney disease with stage 1 through stage 4 chronic kidney disease, or unspecified chronic kidney disease; C48.0 Malignant neoplasm of retroperitoneum; N18.9 Chronic kidney disease, unspecified; G47.33 Obstructive sleep apnea (adult) (pediatric); J45.909 Unspecified asthma, uncomplicated; R45.1 Restlessness and agitation; E78.5 Hyperlipidemia, unspecified; E03.9 Hypothyroidism, unspecified; Z98.890 Other specified postprocedural states; Z86.69 Personal history of other diseases of the nervous system and sense organs; Z79.82 Long term (current) use of aspirin; Z68.41 Body mass index [BMI] 40.0-44.9, adult
CPT/HCPCS: 00811; 45378; J2704; J7042

== ENCOUNTER 2021-03-06 00:11 | Emergency (ER) | payer OTHER ==
[2021-03-06 01:24] LABS: ANION GAP 13.1 mEq/L (7-13); CHLORIDE,CL 99 mmol/L (98-107); SODIUM,NA 134 mmol/L (136-145)
--- NOTE | 2021-03-06 01:58 | EDM.PDOC ---
ED HPI GENERAL MEDICAL PROBLEM - General Chief Complaint: General Stated Complaint: NOT SLEEPING, SWEATING, NEUROLOGIC PROBLEM PER PT Time Seen by Provider: 03/06/21 00:30 Source of Information: Reports: Patient History Limitations: Reports: No Limitations - History of Present Illness INITIAL COMMENTS - FREE TEXT/NARRATIVE: ED ambulatory to be "checked out. Presents with Significant other, hx unable to sleep, apnea and extremely restless, flooping about on bed. Has not slept in past 36 hours, Blood sugars high, Reported compliance with medications and routine health care. Has bipap and CPAP at home but to restless to keep on during night. - Related Data Allergies Allergy/AdvReac Type Severity Reaction Status Date / Time orange Allergy Rash Verified 03/06/21 00:30 midazolam [From Versed] AdvReac Severe Agitation Verified 03/06/21 00:30 Home Meds: Home Meds Aspirin [Lo-Dose Aspirin EC] 81 mg PO DAILY 07/23/18 [History] Levothyroxine 75 mcg PO DAILY 07/23/18 [History] Liraglutide [Victoza] 1.6 units SQ DAILY 07/23/18 [History] Losartan [Cozaar] 25 mg PO DAILY 07/23/18 [History] atorvaSTATin [Lipitor] 10 mg PO BEDTIME 07/23/18 [History] metFORMIN HCl [Metformin HCl] 1,000 mg PO BID 07/23/18 [History] rOPINIRole [Requip] 0.5 mg PO BID 07/23/18 [History] Dulaglutide [Trulicity] 26 units SQ DAILY 01/22/20 [History] Insulin Aspart [NovoLOG] 20 units SUBCUT TID 01/22/20 [History] Albuterol [Proventil HFA] 2 puff INH ASDIRECTED PRN 02/05/20 [History] Albuterol [Proventil] 1 vial NEB ASDIRECTED PRN 02/05/20 [History] Cyanocobalamin (Vitamin B-12) [Vitamin B-12] 1,000 mcg PO DAILY 02/05/20 [History] DULoxetine [Cymbalta] 30 mg PO DAILY 02/05/20 [History] Fluticasone Propionate [Flonase] 1 - 2 spray NASBOTH ASDIRECTED 02/05/20 [History] Insulin Degludec [Tresiba] 30 units SQ DAILY 02/05/20 [History] amLODIPine [Norvasc] 5 mg PO DAILY 02/05/20 [History] hydroCHLOROthiazide [Hydrochlorothiazide] 25 mg PO DAILY 02/05/20 [History] Past Medical History HEENT History: Reports: None Cardiovascular History: Reports: High Cholesterol, Hypertension, Other (See Below) Other Cardiovascular History: STATIS EDEMA BILAT LE Respiratory History: Reports: Asthma, Sleep Apnea, Other (See Below) Other Respiratory History: Tried c-pap and bipap. 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 Genitourinary History: Reports: Chronic Renal Insuffiency, Other (See Below) Other Genitourinary History: Persistent proteinuria Other Musculoskeletal History: Restless legs, fx feet. Neurological History: Reports: Neuropathy, Diabetic, Neuropathy, Peripheral Psychiatric History: Reports: Depression Endocrine/Metabolic History: Reports: Diabetes, Type II, Hypothyroidism, Obesity/BMI 30+ Hematologic History: Reports: Anemia, B12 Deficiency Immunologic History: Reports: None Oncologic (Cancer) History: Reports: None, Other (See Below) Other Oncologic History: seracoma of the abd. - Infectious Disease History Infectious Disease History: Reports: None - Past Surgical History HEENT Surgical History: Reports: None GI Surgical History: Reports: Bariatric Procedure, Colonoscopy Other GI Surgeries/Procedures: Lap Band Male Surgical History: Reports: None Musculoskeletal Surgical History: Reports: Shoulder Surgery Social & Family History - Family History Family Medical History: No Pertinent Family History - Tobacco Use Tobacco Use Status *Q: Never Tobacco User Second Hand Smoke Exposure: No - Caffeine Use Caffeine Use: Reports: Coffee - Recreational Drug Use Recreational Drug Use: No - Living Situation & Occupation Living situation: Reports: , with Spouse ED ROS GENERAL - Review of Systems Review Of Systems: Comprehensive ROS is negative, except as noted in HPI. ED EXAM, GENERAL - Physical Exam Exam: See Below Exam Limited By: No Limitations General Appearance: Mild Distress, Obese Eye Exam: Bilateral Eye: EOMI, PERRL Ears: Normal External Exam, Hearing Loss Nose: Normal Inspection Throat/Mouth: Normal Inspection Head: Atraumatic, Normocephalic Neck: Normal Inspection Respiratory/Chest: No Respiratory Distress, Lungs Clear Cardiovascular: Normal Peripheral Pulses, Regular Rate, Rhythm GI/Abdominal: Normal Bowel Sounds, Soft Extremities: Normal Inspection Neurological: Oriented, Normal Cognition, Normal Reflexes Psychiatric: Flat Affect Skin Exam: Warm, Dry, Intact, Normal Color #1 Interpretation EKG Date: 03/06/21 Time: 01:12 Rhythm: NSR Rate (Beats/Min): 75 [place]: Normal P-Wave: Present QRS: Normal ST-T: Normal Comparison: NA - No Prior EKG Course - Vital Signs Last Recorded V/S: Last Vital Signs Temp 98.4 F 03/06/21 00:24 Pulse 81 03/06/21 00:24 Resp 19 03/06/21 00:24 BP 119/70 03/06/21 00:24 Pulse Ox 95 03/06/21 00:24 - Orders/Labs/Meds Labs: Laboratory Tests 03/06/21 03/06/21 03/06/21 Range/Units 00:50 00:50 00:50 WBC 9.7 (5.0-10.0) 10^3/uL RBC 5.17 (4.6-6.2) 10^6/uL Hgb 14.2 (14.0-18.0) g/dL Hct 43.6 (40.0-54.0) % MCV 84.3 (80-100) fL MCH 27.5 (27.0-34.0) pg MCHC 32.6 L (33.0-35.0) g/dL Plt Count 229 (150-450) 10^3/uL Neut % (Auto) 62.4 (42.2-75.2) % Lymph % (Auto) 27.1 (20.5-50.1) % [place] % (Auto) 7.7 (2-8) % Eos % (Auto) 2.1 (1.0-3.0) % Baso % (Auto) 0.7 (0.0-1.0) % Sodium 134 L (136-145) mmol/L Potassium 4.1 (3.5-5.1) mmol/L Chloride 99 (98-107) mmol/L Carbon Dioxide 26 (21-32) mmol/L Anion Gap 13.1 H (7-13) mEq/L BUN 23 H (7-18) mg/dL Creatinine 1.05 (0.70-1.30) mg/dL Est Cr Clr Drug Dosing 76.69 mL/min Estimated GFR (MDRD) > 60 BUN/Creatinine Ratio 21.9 (No establ ref range) Glucose 361 H (70-99) mg/dL Lactic Acid 1.9 (0.4-2.0) mmol/L Calcium 8.9 (8.5-10.1) mg/dL Magnesium 1.8 (1.8-2.4) mg/dL Total Bilirubin 0.8 (0.2-1.0) mg/dL AST 14 L (15-37) U/L ALT 31 (16-63) U/L Alkaline Phosphatase 94 (46-116) U/L Total Protein 7.3 (6.4-8.2) g/dL Albumin 3.3 L (3.4-5.0) g/dL Globulin 4.0 Albumin/Globulin Ratio 0.83 Amylase 56 (25-115) U/L Lipase 123 (73-393) U/L TSH, Ultra Sensitive 13.18 H (0.36-3.74) uIU/mL - Re-Assessments/Exams Free Text/Narrative Re-Assessment/Exam: 03/06/21 05:57 Intermittent dozing with HOB up 30 degrees, Frequent apnea spells 20-30 seconds, oxygen sats generally low 90 rarely low 80's. Twitching with apnea, No seizure type activity. Arouses to voices oriented appropriate. Departure - Departure Time of Disposition: 01:49 Disposition: Home, Self-Care 01 Condition: Fair Clinical Impression: Obstructive sleep apnea syndrome in adult Obesity Qualifiers: Obesity type: due to excess calories Obesity classification: adult class 3 (BMI >= 40) Body mass index: BMI 45.0-49.9 Diabetes Qualifiers: Diabetes mellitus type: other specified (including JERMAINE) Diabetes mellitus termination clerk insulin use: unspecified halfway insulin use status Diabetes mellitus complication status: with hyperglycemia Qualified Code(s): E13.65 - Other specified diabetes mellitus with hyperglycemia Hypothyroid Qualifiers: Hypothyroidism type: unspecified Qualified Code(s): E03.9 - Hypothyroidism, u nspecified - Discharge Information *PRESCRIPTION DRUG MONITORING PROGRAM REVIEWED*: No *COPY OF PRESCRIPTION DRUG MONITORING REPORT IN PATIENT GRACIE: No Instructions: Hypothyroidism, Obesity-Hypoventilation Syndrome Referrals: PCP,None [Primary Care Provider] - Forms: ED Department Discharge Additional Instructions: Clinic follow up with Primary care use cpap consider ENT referral Take home medication as directed slight elevation of head at night Increase Levothyroxine 75mcg one 5 days per week 1 1/2 twice weekly TSH 13.1 increase treseba 32 units daily Sepsis Event Note (ED) - Evaluation Sepsis Screening Result: No Definite Risk - Focused Exam Vital Signs: Vital Signs Temp Pulse Resp BP Pulse Ox 03/06/21 00:24 98.4 F 81 19 119/70 95
== END 2021-03-06 02:12 | disposition home or self-care (01) ==
LOC: DL.ED 00:11
DX: E13.65 Other specified diabetes mellitus with hyperglycemia (principal); E03.9 Hypothyroidism, unspecified; G47.33 Obstructive sleep apnea (adult) (pediatric); E66.09 Other obesity due to excess calories; E78.00 Pure hypercholesterolemia, unspecified; I12.9 Hypertensive chronic kidney disease with stage 1 through stage 4 chronic kidney disease, or unspecified chronic kidney disease; E11.22 Type 2 diabetes mellitus with diabetic chronic kidney disease; N18.9 Chronic kidney disease, unspecified; E13.42 Other specified diabetes mellitus with diabetic polyneuropathy; Z68.42 Body mass index [BMI] 45.0-49.9, adult; Z91.018 Allergy to other foods; Z88.4 Allergy status to anesthetic agent; Z79.4 Long term (current) use of insulin; Z79.82 Long term (current) use of aspirin; Z79.899 Other long term (current) drug therapy
CPT/HCPCS: 36415; 80053; 82150; 83605; 83690; 83735; 84443; 85025; 93005; 99285-25